=== PATIENT | male | born 2000 | race Two or more races ===

== ENCOUNTER 2021-02-20 22:41 | Emergency (ER) | payer OTHER ==
[~2021-02-20] VITALS: Ht 180.3 cm; Wt 63.5 kg
[2021-02-21 00:15] VITALS: BP 143/77
[2021-02-21] MEDS ORDERED: NEOMYCIN-BACITRACIN-POLYM UNITDOSE PKG TOP OINT TOP ONE (00:45)
[2021-02-21] MEDS ORDERED: LIDOCAINE 1% HCL (LOCAL ANESTH.) INJ 20ML MDV IJ ONE (01:00)
== END 2021-02-21 01:30 | disposition home or self-care (01) ==
LOC: ER 22:45
DX: S61.214A Laceration without foreign body of right ring finger without damage to nail, initial encounter (principal); W25.XXXA Contact with sharp glass, initial encounter; Y93.89 Activity, other specified; Y92.89 Other specified places as the place of occurrence of the external cause; Y99.8 Other external cause status
CPT/HCPCS: 12001; 73140

== ENCOUNTER 2021-03-09 21:39 | Emergency (ER) | payer MEDICAID, OTHER ==
[~2021-03-09] VITALS: Ht 180.3 cm; Wt 63.5 kg
[2021-03-09 23:38] VITALS: BP 139/64
== END 2021-03-10 00:33 | disposition home or self-care (01) ==
LOC: ER 21:39
DX: S61.215D Laceration without foreign body of left ring finger without damage to nail, subsequent encounter (principal); X58.XXXD Exposure to other specified factors, subsequent encounter